=== PATIENT | female | born 1965 | race Caucasian/White ===

== ENCOUNTER 2017-03-17 08:26 | Day surgery (SDC) | payer OTHER ==
--- NOTE | 2017-03-14 13:12 | HISTORY AND PHYSICAL E ---
History and Physical NAME: ERASTO NOYOLA : 1965 AGE: 51Y ADMITTED: 03/17/2017 ROOM: HISTORY: Patient was seen in 2015 where she did have colonoscopy done in the OR with anesthesia standby. The patient presented at this time for colonoscopy. SOCIAL HISTORY: . Does not smoke. Drinks rarely. SURGICAL HISTORY: She did have hysterectomy. FAMILY HISTORY: Father alive with heart disease. Her mom is alive. PHYSICAL EXAMINATION: VITAL SIGNS: Blood pressure 110/70, pulse 80, respirations 18, temp is 98. HEENT: Normal. ABDOMEN: Soft. NEUROLOGIC: Negative. Patient did have colonoscopy in the OR with anesthesia standby 10/09/2015. Colon shows no evidence of malignancy, diverticulosis sigmoid descending, 2 mm diminutive polyp. She does have history of endometriosis. The patient's colonoscopy was essentially normal. White count 7, hemoglobin 12. is normal. Again, colonoscopy done in the OR with anesthesia standby. She did have hemorrhoids, rectal polyps small to biopsy. Sigmoid descending colon diverticulosis. CONCLUSION: Diverticulosis. PLAN: Colonoscopy. DICTATING PHYSICIAN: ANTONIETTA YOUNG M.D. [id number] PHY#: [id number] ID: [id number] JOB#: [id number] ACCT: [id number] cc:ANTONIETTA YOUNG M.D. >
--- NOTE | 2017-03-14 13:13 | HISTORY AND PHYSICAL E ---
History and Physical NAME: ERASTO NOYOLA : 1965 AGE: 51Y ADMITTED: 03/17/2017 ROOM: ADDENDUM: Continuation dictation. CHIEF COMPLAINT: Patient admitted regarding colon screening, history of diverticulosis. HISTORY: She did have colonoscopy, 10/08/2014, showed diverticulosis of sigmoid colon, diverticulosis - a few in the ascending colon, and diminutive polyp in the rectum and external hemorrhoids. At this time, the patient presented for followup colonoscopy. REVIEW OF SYSTEMS: History of endometriosis. History of anemia. History of diverticulosis. Colonoscopy was done in the OR in 2014. The patient presented at this time regarding colonoscopy. PHYSICAL EXAMINATION: GENERAL: Pleasant, alert, oriented. VITAL SIGNS: Blood pressure is 110/70, pulse 80, respirations are 18, temp is 98. HEAD, EYES, EARS, NOSE, THROAT: Normal. ABDOMEN: Soft. NEUROLOGIC: Exam negative. DICTATING PHYSICIAN: ANTONIETTA YOUNG M.D. [id number] PHY#: [id number] ID: [id number] JOB#: [id number] ACCT: [id number] cc:ANTONIETTA YOUNG M.D. >
[~2017-03-17 08:26] MED LIST: EPINEPHRINE INJ 1 MG/10 ML DISP.SYRIN ONE; FLUMAZENIL INJ 0.5 MG/5 ML VIAL ONE; GLUCAGON,HUMAN RECOMB 1 MG INJ ONE; GLYCOPYRROLATE INJ 0.4 MG/2 ML VIAL ONE; LIDOCAINE 2% JELLY 30 ML TUBE ONE; NALOXONE HCL INJ/PF 0.4 MG/1 ML SDV ONE; ONDANSETRON HCL INJ/PF 4 MG/2 ML SDV ONE
[2017-03-17] MEDS: MIDAZOLAM 2 MG/2 ML INJ ONE ×2 (09:35→09:47)
[2017-03-17] MEDS: FENTANYL CITRATE INJ/PF 100 MCG/2 ML AMPUL ONE ×2 (09:38→09:43)
[2017-03-17 10:59] LABS: ABSOLUTE EOSINOPHILS # (AUTO) 0.1 10^3/uL (0.0-0.6); ABSOLUTE LYMPHOCYTES (AUTO) 1.7 10^3/uL (0.5-4.7); ABSOLUTE MONOCYTES (AUTO) 0.6 10^3/uL (0.1-1.4); ABSOLUTE NEUT (AUTO) 8.8 10^3/uL (1.7-8.2); BASOPHILS % (AUTO) 0.3 % (0-2); EOSINOPHILS % (AUTO) 0.8 % (0-6); HEMATOCRIT 41.3 % (36.0-47.0); HGB HCT DIFFERENCE 0.7; MEAN CORPUSCULAR HEMOGLOBIN 30.8 pg (27.0-33.4); MEAN CORPUSCULAR HGB CONC 33.9 g/dL (32.0-36.0); MEAN CORPUSCULAR VOLUME 91 fl (80-97); MONOCYTES % (AUTO) 5.4 % (3-13); RED BLOOD COUNT 4.54 10^6/uL (3.72-5.28); RED CELL DISTRIBUTION WIDTH 13.5 % (11.5-14.0); SEGMENTED NEUTROPHILS % (AUTO) 78.5 % (42-78); WHITE BLOOD COUNT 11.3 10^3/uL (4.0-10.5)
[2017-03-17 11:06] VITALS: BP 104/67
[2017-03-17 11:36] LABS: ERYTHROCYTE SEDIMENTATION RATE 12 mm/hr (0-30)
--- NOTE | 2017-03-18 18:56 | DISCHARGE SUMMARY E ---
Discharge Summary NAME: ERASTO NOYOLA : 1965 AGE: 51Y ADMITTED: 03/17/2017 DISCHARGED: 03/17/2017 HISTORY: A 51-year-old female presents with abdominal pain. Colonoscopy showing sigmoid descending diverticulosis. DISCHARGE PLAN: Soft, low-residue diet. Baseline CBC. Hold aspirin, nonsteroidal. Consideration followup colonoscopy after 10 years. Patient allergic to NAPROXEN, MORPHINE, AND LEVAQUIN. Followup office visit in the next few days. DICTATING PHYSICIAN: ANTONIETTA YOUNG M.D. [id number] [id number] PHY#: [id number] ID: [id number] JOB#: [id number] ACCT: [id number] cc:ANTONIETTA YOUNG M.D. >
--- NOTE | 2017-03-18 19:01 | OPERATIVE REPORT E ---
Operative Report NAME: ERASTO NOYOLA : 1965 AGE: 51Y DATE OF SURGERY: 03/17/2017 ROOM: PREOPERATIVE DIAGNOSIS: Abdominal pain. POSTOPERATIVE DIAGNOSIS: Sigmoid descending colon diverticulosis. PROCEDURE: Colonoscopy. SURGEON: ANTONIETTA YOUNG M.D. ANESTHESIA: Versed 3 and fentanyl 100. TISSUE REMOVED OR ALTERED: None. PROCEDURE: Rectal exam normal. Sigmoid diverticulosis, severe. Descending colon diverticulosis. Transverse colon normal. Ascending colon normal. Cecum normal. Scope withdrawn from cecum, ascending, transverse, descending, sigmoid, all the way to the rectum. CONCLUSION: Sigmoid descending colon diverticulosis. No polyps. PLAN: Soft low residue diet for 5 days. Hold aspirin and nonsteroidal for 5 days. DICTATING PHYSICIAN: ANTONIETTA YOUNG M.D. [id number] PHY#: [id number] ID: [id number] JOB#: [id number] ACCT: [id number] cc:[facility] ANTONIETTA YOUNG M.D. >
== END 2017-03-17 11:06 | disposition home or self-care (01) ==
LOC: END 08:26
PROVIDERS: ATTEND Specialist
PROC: 0DJD8ZZ Inspection of Lower Intestinal Tract, Via Natural or Artificial Opening Endoscopic (ICD-10-PCS; principal; 2017-03-17 09:00)
DX: K57.30 Diverticulosis of large intestine without perforation or abscess without bleeding (principal); Z86.010 Personal history of colon polyps
CPT/HCPCS: 45378; 36415; 85025; 85652; J2250; J3010; J1610; J2405; J0171; J2310; J3490